=== PATIENT | male | born 1975 | race Caucasian/White ===

== ENCOUNTER 2024-08-07 10:16 | Emergency (ER) | payer OTHER ==
[2024-08-07] MEDS: Acetaminophen/HYDROcodone 325-5 MG Tab PO ONE (10:37)
[2024-08-07] MEDS: Ibuprofen 200 MG Tab PO STA (10:37)
== END 2024-08-07 11:49 | disposition home or self-care (01) ==
LOC: VM.ED 10:16
DX: S20.212A Contusion of left front wall of thorax, initial encounter (principal); W18.30XA Fall on same level, unspecified, initial encounter; Y99.0 Civilian activity done for income or pay
CPT/HCPCS: 71101; 99283; A9270